=== PATIENT | female | born 1995 | race Caucasian/White ===

== ENCOUNTER 2018-05-31 03:17 | Emergency (ER) | payer SELFPAY ==
[2018-05-31] VITALS (12 sets, daily range): BP systolic 85–106; BP diastolic 46–79; PULSE 70–89; RESP 12–19; TEMP 36.6; O2SAT 97–100
--- NOTE | 2018-05-31 03:24 | W.ED.GENAD ---
Discharge Plan Disposition Patient Disposition: HOME Condition: Improving Discharge Details Chief Complaint: OD/Poison Clinical Impression: Alcohol intoxication Primary Care Provider: Capo Garibay ED Provider: Jose Copeland Home Meds and New Rx's Prescriptions: No Action No Known Home Meds RF: 0 Discharge Instructions Instructions: Alcohol Intoxication (ED) Additional Instructions: Home to rest today. Small, frequent sips of fluids to maintain hydration. May use ibuprofen if needed for aches or pains. Return for any acute concerns Medical Decision Making 23-year-old female who was celebrating early college graduation, noted by friends drink approximately 1/5 of vodka. She vomited a number of times. She did not fall or injure herself. Pts friend denies other drug ingestion. Her exam is consistent with this and there is no evidence of acute trauma. Patient had IV access established, given parenteral fluids, antiemetic, referred for laboratory testing. She has significant high level of alcohol greater than 250. Labs otherwise reassuring. Patient observed over 3-1/2 hours. Ambulatory, feeling better, she is urinated and able to take sips of fluids. Stable for outpatient management and will be discharged in the company of her friends Medical Records Medical records reviewed: Yes I reviewed the patient's medical records. Laboratory Results - last 24 hr 05/31/18 05/31/18 03:40 03:40 WBC 7.73 RBC 4.45 Hgb 13.9 Hct 40.3 MCV 90.6 MCH 31.2 MCHC 34.5 RDW 12.2 Plt Count 245 MPV 9.2 Immature Gran % 0.4 Neutrophils % 66.6 Lymphocytes % 27.4 Monocytes % 4.5 Eosinophils % 0.5 Basophils % 0.6 Absolute Neutrophils 5.14 Absolute Lymphocytes 2.12 Absolute Monocytes 0.35 Absolute Eosinophils 0.04 Absolute Basophils 0.05 Sodium 141 Potassium 4.2 Chloride 106 Carbon Dioxide 24.9 Anion Gap 10.1 BUN 11 Creatinine 0.46 L Estimated GFR/1.73 m2 >= 60.00 Glucose 110 H Calcium 8.3 L Total Bilirubin 1.2 H AST 24 ALT 20 Alkaline Phosphatase 91 Total Protein 7.9 Albumin 4.0 Ethyl Alcohol 258.5 Lab Data Lab results reviewed: Yes I reviewed the patient's lab results. HPI General Mode of arrival: wheelchair. Date/Time Provider Initiated Documentation: 05/31/18 03:21. Limitations to Documentation: no limitations. History of Present Illness 23 year old F presents to the emergency department with the chief complaint of Acute alcohol intoxication with vomiting. No other drugs. , described as moderate, Patient notes other (Patient noncontributory to history). Related Data Home Medications Medication Instructions Recorded Confirmed Unknown [No Known Home Meds] 05/31/18 05/31/18 Allergies Allergy/AdvReac Type Severity Reaction Status Date / Time No Known Allergies Allergy Unverified 05/31/18 06:15 Review of Systems Review of Systems Unable to obtain Unobtainable due to mental status and Unobtainable due to (Intoxicated) [facility] Social History Smoking/Tobacco Use Status: Never Exam Narrative Exam Narrative: GEN: Intoxicated, well groomed, odor of alcohol. HEAD: Normocephalic, atraumatic ENT: Mucous membranes moist, oropharynx unremarkable, External ear exam unremarkable EYES: PERRL, EOMI NECK: Full ROM, no TIMOTEO, no menigismus CHEST/RESP: Nontender, clear to auscultation bilateral, no wheeze/rhonchi/rales CARDIOVASCULAR: RRR, no murmur, rub estephania. 2+ Rad pulse bilateral ABDOMEN: Soft, nontender, no mass. +Bowel sounds EXT: Full ROM, no edema, no rash Neuro: Grossly normal neurologic exa. Psych: Unable to assess
--- NOTE | 2018-05-31 03:28 | ED.GENADUL_ITS ---
Discharge Plan Disposition Patient Disposition: HOME Condition: Improving Discharge Details Chief Complaint: OD/Poison Clinical Impression: Alcohol intoxication Primary Care Provider: Capo Garibay ED Provider: Jose Copeland Home Meds and New Rx's Prescriptions: No Action No Known Home Meds RF: 0 Discharge Instructions Instructions: Alcohol Intoxication (ED) Additional Instructions: Home to rest today. Small, frequent sips of fluids to maintain hydration. May use ibuprofen if needed for aches or pains. Return for any acute concerns Medical Decision Making 23-year-old female who was celebrating early college graduation, noted by friends drink approximately 1/5 of vodka. She vomited a number of times. She did not fall or injure herself. Pts friend denies other drug ingestion. Her exam is consistent with this and there is no evidence of acute trauma. Patient had IV access established, given parenteral fluids, antiemetic, referred for laboratory testing. She has significant high level of alcohol greater than 250. Labs otherwise reassuring. Patient observed over 3-1/2 hours. Ambulatory, feeling better, she is urinated and able to take sips of fluids. Stable for outpatient management and will be discharged in the company of her friends Medical Records Medical records reviewed: Yes I reviewed the patient's medical records. Laboratory Results - last 24 hr 05/31/18 05/31/18 03:40 03:40 WBC 7.73 RBC 4.45 Hgb 13.9 Hct 40.3 MCV 90.6 MCH 31.2 MCHC 34.5 RDW 12.2 Plt Count 245 MPV 9.2 Immature Gran % 0.4 Neutrophils % 66.6 Lymphocytes % 27.4 Monocytes % 4.5 Eosinophils % 0.5 Basophils % 0.6 Absolute Neutrophils 5.14 Absolute Lymphocytes 2.12 Absolute Monocytes 0.35 Absolute Eosinophils 0.04 Absolute Basophils 0.05 Sodium 141 Potassium 4.2 Chloride 106 Carbon Dioxide 24.9 Anion Gap 10.1 BUN 11 Creatinine 0.46 L Estimated GFR/1.73 m2 >= 60.00 Glucose 110 H Calcium 8.3 L Total Bilirubin 1.2 H AST 24 ALT 20 Alkaline Phosphatase 91 Total Protein 7.9 Albumin 4.0 Ethyl Alcohol 258.5 Lab Data Lab results reviewed: Yes I reviewed the patient's lab results. HPI General Mode of arrival: wheelchair . Date/Time Provider Initiated Documentation: 05/31/18 03:21 . Limitations to Documentation: no limitations . History of Present Illness 23 year old F presents to the emergency department with the chief complaint of Acute alcohol intoxication with vomiting. No other drugs. , described as moderate, Patient notes other (Patient noncontributory to history). Related Data Home Medications Medication Instructions Recorded Confirmed Unknown [No Known Home Meds] 05/31/18 05/31/18 Allergies Allergy/AdvReac Type Severity Reaction Status Date / Time No Known Allergies Allergy Unverified 05/31/18 06:15 Review of Systems Review of Systems Unable to obtain Unobtainable due to mental status and Unobtainable due to (Intoxicated) [facility] Social History Smoking/Tobacco Use Status: Never Exam Narrative Exam Narrative: GEN: Intoxicated, well groomed, odor of alcohol. HEAD: Normocephalic, atraumatic ENT: Mucous membranes moist, oropharynx unremarkable, External ear exam unremarkable EYES: PERRL, EOMI NECK: Full ROM, no TIMOTEO, no menigismus CHEST/RESP: Nontender, clear to auscultation bilateral, no wheeze/rhonchi/rales CARDIOVASCULAR: RRR, no murmur, rub estephania. 2+ Rad pulse bilateral ABDOMEN: Soft, nontender, no mass. +Bowel sounds EXT: Full ROM, no edema, no rash Neuro: Grossly normal neurologic exa. Psych: Unable to assess
[2018-05-31] MEDS: Lactated Ringers 1,000 ML 2000 ML IV ×2 (03:45→04:31)
[2018-05-31 03:49] LABS: Abs Immature Grans 0.03 k/cumm (0.0-0.09); Absolute Basophil Count 0.05 k/cumm (0.0-0.2); Absolute Eosinophil Count 0.04 k/cumm (0.0-0.7); Absolute Lymphocyte Count 2.12 k/cumm (1.2-3.4); Absolute Monocyte Count 0.35 k/cumm (0.11-0.7); Absolute Neutrophil Count 5.14 k/cumm (1.2-6.7); Basophils % 0.6; Eosinophils % 0.5; HCT 40.3 % (36.0-46.0); HGB 13.9 g/dL (12.0-15.5); Immature Grans % 0.4; Lymphocytes % 27.4; Mean Corp. HGB Concentration 34.5 g/dL (32.0-36.0); Mean Corpuscular Hemoglobin 31.2 pg (27.0-33.0); Mean Corpuscular Volume 90.6 fL (80-95); Mean Platelet Volume 9.2 fL (8.0-11.0); Monocytes % 4.5; Neutrophils % 66.6; Platelet Count 245 x1000/uL (130-400); RBC 4.45 m/cumm (4.00-5.20); RBC Distribution Width 12.2 % (11.7-14.6); White Blood Cell Count 7.73 k/cumm (4.4-10.8)
[2018-05-31] MEDS: Ondansetron 4 MG/2 ML VIAL IVP (03:50)
[2018-05-31 03:59] LABS: ALT 20 U/L (12-78); AST 24 U/L (15-37); Alkaline Phosphatase 91 U/L (46-116); Anion Gap 10.1 mmol/L (3-11); BUN 11 mg/dL (7-18); Bilirubin, Total 1.2 mg/dL (0.2-1.0); CO2 24.9 mmol/L (21.0-32.0); CREATININE 0.46 mg/dL (0.55-1.02); Calcium 8.3 mg/dL (8.5-10.1); Chloride 106 mmol/L (98-107); ETHANOL BLOOD 258.5 mg/dL (<3); Glucose 110 mg/dL (70-100); Potassium 4.2 mmol/L (3.5-5.1); Sodium 141 mmol/L (136-145); Total Protein 7.9 g/dL (6.4-8.2)
--- NOTE | 2018-05-31 06:14 | NUR.NOTE ---
Nursing Note:OOB to BR and back. Drowsy, oriented.
== END 2018-05-31 07:15 | disposition home or self-care (01) ==
PROVIDERS: Emergency Provider Emergency Medicine; PCP Family Medicine
DX: F10.120 Alcohol abuse with intoxication, uncomplicated (principal)
CPT/HCPCS: 36415; 80053; 81025; 96361; 96374; 99284; 80320; 85025; J2405